=== PATIENT | male | born 1930 | race Caucasian/White ===

== ENCOUNTER 2017-02-18 07:20 | Day surgery (SDC) | payer OTHER, SELFPAY ==
[2017-02-17 12:25] LABS: HEMOGLOBIN 11.9 g/dL (13.6-17.8)
[2017-02-17 12:26] LABS: HEMATOCRIT 36.1 % (40.0-51.0)
[2017-02-17 12:56] LABS: ASCORBIC ACID (UR NOT ORDER) NEG (NEG); BILIRUBIN, URINE NEGATIVE (NEG); KETONE, URINE NEGATIVE (NEG); LEUKOCYTE ESTERASE(NOT OR TRACE (NEG); WBC (NOT ORDERED) (RFLEX) 7 (0-5)
[2017-02-17 13:08] LABS: BUN (BLOOD UREA NITROGEN) 16 MG/DL (6-23); CALCIUM, SERUM 8.6 MG/DL (8.5-10.4); CHLORIDE, SERUM 107 MMOL/L (96-112); CO2 (CARBON DIOXIDE) 28 MMOL/L (24-34); CREATININE 1.34 MG/DL (0.70-1.30); GFR AFRICAN AMERICAN 54 ML/MIN (>=60); GFR NON AFRICAN AMERICAN 47 ML/MIN (>=60); GLUCOSE, SERUM 103 MG/DL (60-99); POTASSIUM, SERUM 3.8 MMOL/L (3.5-5.3); SODIUM, SERUM 142 MMOL/L (135-148)
--- NOTE | ~2017-02-18 | OP ---
Record Of Operation [facility] [address] [facility] [place]. [address] NAME: LISSET SALAZAR : [birth year] STATUS : [facility]#: [id number] AGE: 86 ADM/REG DATE : 02/18/17 MR#: [id number] REPORT SERV DATE: 02/19/17 DICTATED BY: GERSON MORALES DATE: 02/19/17 REPORT STATUS : Draft TRANSCRIBED BY: MODL DATE: 02/19/17 DATE OF PROCEDURE: 02/18/2017 SURGEON: Gerson Morales MD TITLE OF OPERATION: 1. Transurethral resection of bladder tumor of 3 cm in size. 2. Installation of intravesical mitomycin-C. PREOPERATIVE DIAGNOSIS: Bladder cancer. POSTOPERATIVE DIAGNOSIS: Bladder cancer. INDICATIONS: Mr. Salazar is an 86-year-old male with high-grade invasive T1 bladder cancer. He has had recurrent status post 2 rounds of BCG. He is nonoperative candidate. He is here for repeat transurethral resection and ventral discussion of radiation therapy. ANESTHESIA: General. COMPLICATIONS: None. IMPLANTS: 18-Algerian Diaz catheter. SPECIMEN: Bladder tumor. NARRATIVE: The patient was brought to the operating room, identified by his wristband. General anesthesia was induced. Ancef was given for preoperative antibiotics. He was placed in dorsal lithotomy position, and prepped and draped in sterile fashion. A 24-Algerian resectoscope was placed into his urethra and into his bladder. The prostatic urethra was notable for widely patent urethra, status post TURP. The bladder was inspected. There was a one 0.5 cm tumor in the upper left lateral wall of the bladder. There was also two tumors approximately 3 cm in size and bladder diverticuli. These were all resected to their base. Care was taken to not perforate the bladder and the bladder diverticulum. The pathology tissue was removed and sent to pathology. The hemostasis was obtained with cautery. There was no ongoing bleeding. An 18-Algerian Diaz catheter was placed. The patient was awoken from anesthesia and transferred to the recovery room in stable condition. placed in his bladder in phase II recovery. He will follow up with me in two weeks and go to pathology and discuss definitive therapy. YAMILA/CHACORTA Gerson Morales MD Record Of Operation [address] [address] NAME: LISSET SALAZAR : [birth year] STATUS : [facility] PAT#: [id number] AGE: 86 ADM/REG DATE : 02/18/17 MR#: [id number] REPORT SERV DATE: 02/19/17 DICTATED BY: GERSON MORALES DATE: 02/19/17 REPORT STATUS : Draft TRANSCRIBED BY: MODL DATE: 02/19/17 / [id number] CC: MD CARMELITA Bhardwaj ROD LEE
[~2017-02-18 07:20] MED LIST: ASAB PO; ASABAYER PO; BACDS PO; CENTRUM PO; CIP5 PO; DSS PO; GARLIC; GARLIC PO; LOP50 PO; MULTIVIT/MIN PO; PCET PO; PEP20 PO; UROXATRAL PO; VENTOLIN HFA INH
== END 2017-02-18 16:14 | disposition home or self-care (01) ==
LOC: SDC 07:20
PROVIDERS: Urology
PROC: 0TBB8ZZ Excision of Bladder, Via Natural or Artificial Opening Endoscopic (ICD-10-PCS; principal; 2017-02-18 09:00)
DX: C67.2 Malignant neoplasm of lateral wall of bladder (principal); I10 Essential (primary) hypertension; J44.9 Chronic obstructive pulmonary disease, unspecified; I25.2 Old myocardial infarction; H91.90 Unspecified hearing loss, unspecified ear; K21.9 Gastro-esophageal reflux disease without esophagitis; Z79.899 Other long term (current) drug therapy; Z87.891 Personal history of nicotine dependence; Z98.41 Cataract extraction status, right eye; Z98.42 Cataract extraction status, left eye; Z90.79 Acquired absence of other genital organ(s); Z98.890 Other specified postprocedural states
CPT/HCPCS: 36415; 80048; 81001; 85014; 85018; 86850; 86900; 86901; 88307; 93005; J0690; J2405; J3010; J9280